=== PATIENT | female | born 1945 | race Caucasian/White ===

== ENCOUNTER 2016-04-06 10:31 | Day surgery (SDC) | payer MEDICARE ==
[~2016-04-06 10:31] MED LIST: FENTANYL 250 MCG/5 ML AMP IV PRN; LACTATED RINGERS 1,000 ML IV SCH; MIDAZOLAM HCL 5 MG/5 ML VIAL IV PRN
[2016-04-06] MEDS ORDERED: IV START KIT ONE (10:46)
[2016-04-06] MEDS ORDERED: LACTATED RINGERS 1,000 ML ONE (10:46)
[2016-04-06] MEDS ORDERED: MIDAZOLAM HCL 5 MG/5 ML VIAL ONE (12:03)
[2016-04-06] MEDS ORDERED: FENTANYL 5 ML ONE (12:03)
== END 2016-04-06 14:47 | disposition home or self-care (01) ==
LOC: SDC 10:31
PROVIDERS: ATTEND Internal Medicine Gastroenterology
PROC: 0DJD8ZZ Inspection of Lower Intestinal Tract, Via Natural or Artificial Opening Endoscopic (ICD-10-PCS; principal; 2016-04-06)
DX: K57.30 Diverticulosis of large intestine without perforation or abscess without bleeding (principal); Z87.891 Personal history of nicotine dependence; Z88.8 Allergy status to other drugs, medicaments and biological substances; Z91.040 Latex allergy status
CPT/HCPCS: 45378; J3010; J2250; J7120

== ENCOUNTER 2016-05-05 14:59 | Outpatient (CLI) | payer MEDICARE | END 2016-05-05 15:00 | disposition home or self-care (01) | LOC: NC 14:59 | PROVIDERS: ATTEND Family Medicine | DX: K57.30 Diverticulosis of large intestine without perforation or abscess without bleeding (principal); Z71.3 Dietary counseling and surveillance; Z68.1 Body mass index [BMI] 19.9 or less, adult ==